=== PATIENT | female | born 1985 | race Caucasian/White ===

== ENCOUNTER → 2017-03-28 | Outpatient (CLI) | payer BC ==
[~2017-03-28] MED LIST: ELINEST1 TAB PO
--- NOTE | 2017-03-29 10:28 | RADIOLOGY REPORT PS360 ---
US THYROID HISTORY: Fatigue, abnormal parathyroid levels RT THYROID NODULE ORDERING PHYSICIAN: Paige PEPE PATIENT AGE: 31 years COMPARISON: 11/22/2012 FINDINGS: Right lobe: Homogeneous echogenicity. There is an area of isoechogenicity along the posterior aspect of the thyroid gland seen only on the transverse images measuring 8 mm and could represent a parathyroid gland. This however is not demonstrated on the orthogonal views and may be artifactual in nature. Left lobe: Homogeneous echogenicity. Unremarkable appearance. Isthmus: Unremarkable at 3 mm thickness IMPRESSION: Essentially unremarkable thyroid ultrasound. There is question of the parathyroid gland seen on the right however this, is not definite. Parathyroid imaging with sestamibi scan may be of further value if clinically warranted to evaluate for parathyroid adenoma
== END ==
LOC: RAD 15:26
DX: E04.1 Nontoxic single thyroid nodule (principal)

== ENCOUNTER → 2017-04-07 | Outpatient (CLI) | payer BC ==
--- NOTE | 2017-04-08 11:09 | RADIOLOGY REPORT PS360 ---
[facility] PARATHYROID IMAGING COMPARISON: Ultrasound of 03/28/2017 HISTORY: Elevated parathyroid levels, abnormal ultrasound TECHNIQUE: . Anterior and oblique images are obtained at 15 minutes and 2 hours DOSE: 20.7 mCi technetium sestamibi injected FINDINGS: Homogeneous activity is present within the thyroid gland initially. The delayed images show no abnormal activity within the thyroid or parathyroid region. Normal activity noted within the salivary glands. No ectopic abnormal activity evident within the upper chest or neck. IMPRESSION: No evidence of parathyroid adenoma
== END ==
LOC: RAD 08:49
DX: E34.9 Endocrine disorder, unspecified (principal)
CPT/HCPCS: A9500